=== PATIENT | female | born 1955 | race Caucasian/White ===

== ENCOUNTER 2020-04-17 08:25 | Day surgery (SDC) | payer BC ==
[~2020-04-17] VITALS: Ht 157.5 cm; Wt 71.0 kg
[~2020-04-17 08:25] MED LIST: AMLO5 PO; ASPI325 PO; ATOR20 PO; CILO50 PO; CLOP75 PO; LOSA50 PO; Lisinopril2.5 MG PO; OXYC1TAB11 PO; VITAMIN D5000 UNIT PO
--- NOTE | 2020-04-17 12:36 | NUR ---
PATIENT AND STAFF CALLED ON SPEAKER PHONE AND UPDATED HIM ON POTENTIAL DISCAHRGE TIME AND THAT THE PATIENT WAS DONE WITH THE PROCEDURE.
--- NOTE | 2020-04-17 12:42 | NUR ---
LUNCH TRAY SERVED AND HOB UP 10 DEGREES AND PATIENT FEEING SELF.
--- NOTE | 2020-04-17 14:07 | NUR ---
PT UP AMBUALTORY IN RECOVERY ROOM. BILAT GROIN SITES STABLE. PT GETTING SELF DRESSED AT THIS TIME.
--- NOTE | 2020-04-17 14:26 | NUR ---
PT DISCHARGE GONE OVER WITH PT, VERBALIZES UNDERSTANDING. SALINE LOCK REMOVED WITH CATHETER INTACT. BILAT GROIN SITES STABLE. PT TO PRIVATE VEHICLE PER W/C WITH ONE STAFF.
== END 2020-04-17 14:10 | disposition home or self-care (01) ==
LOC: MHTC 08:25
DX: I70.212 Atherosclerosis of native arteries of extremities with intermittent claudication, left leg (principal); G89.29 Other chronic pain; M54.9 Dorsalgia, unspecified; E78.5 Hyperlipidemia, unspecified; I10 Essential (primary) hypertension; M19.90 Unspecified osteoarthritis, unspecified site; I71.4 Abdominal aortic aneurysm, without rupture; Z88.8 Allergy status to other drugs, medicaments and biological substances; Z79.899 Other long term (current) drug therapy; Z79.02 Long term (current) use of antithrombotics/antiplatelets; Z20.822 Contact with and (suspected) exposure to COVID-19
CPT/HCPCS: 37211; 37220; 37221; 37222; 75625; 75716; 76937; 99152; 99153; C1725; C1760; C1769; C1874; C1887; C1894; J1644; J2250; J2997; J3010; J7030; J7040; J7050; Q9967